=== PATIENT | female | born 1980 | race Caucasian/White ===

== ENCOUNTER 2016-10-20 16:53 | Emergency (ER) | payer OTHER ==
[~2016-10-20 16:53] MED LIST: CIPRO; PYRIDIUM
== END 2016-10-20 19:06 | disposition left against medical advice (07) ==
LOC: ER 16:54
DX: M54.5 Low back pain (principal)

== ENCOUNTER 2017-03-24 22:24 | Emergency (ER) | payer SELFPAY ==
[~2017-03-24] VITALS: Ht 167.6 cm; Wt 68.0 kg
[2017-03-25] MEDS ORDERED: SODIUM CHLORIDE 0.9% 1,000 ML IV ONE (01:44)
[2017-03-25] MEDS ORDERED: ONDANSETRON HCL 4MG/2ML VIAL IV ONE (01:45)
[2017-03-25] MEDS ORDERED: KETOROLAC 30MG/ML VIAL IV ONE (01:45)
[2017-03-25 02:13] LABS: BASOPHILS % 1.1 % (0.0-2.0); EOSINOPHILS % 3.6 % (0.0-5.0); HEMATOCRIT. 40.3 % (36.0-48.0); HEMOGLOBIN. 13.7 g/dL (12.0-16.0); MEAN CORPUSCULAR HEMOGLOBIN 31.6 pg (28.0-32.0); MEAN CORPUSCULAR VOLUME 92.8 fL (81.0-99.0); MEAN PLATELET VOLUME 8.8 fl (7.4-10.4); MONOCYTES % 10.4 % (2.0-8.0); NEUTROPHILS % 28.9 % (40.0-76.0); PLATELET 179 x1000/uL (130-400); RED BLOOD CELL COUNT 4.34 mill/uL (4.2-5.4); RED CELL DISTRIBUTION WIDTH 12.9 % (11.6-14.6)
[2017-03-25 02:19] LABS: CHLORIDE 106 mEq/L (98-107)
[2017-03-25 02:20] LABS: PROTHROMBIN TIME 10.3 sec (9.4-11.6)
[2017-03-25 02:27] LABS: CARBON DIOXIDE 31 mEq/L (21-32); ETHANOL BLOOD < 10 mg/dL
[2017-03-25 02:52] LABS: CLARITY URINE CLOUDY (CLEAR); COLOR URINE YELLOW (YELLOW); GLUCOSE URINE NEGATIVE (NEGATIVE); KETONES URINE TRACE (NEGATIVE); LEUKOCYTE ESTERASE URINE 3+ (NEGATIVE); NITRITE URINE POSITIVE (NEGATIVE); OCCULT BLOOD URINE 1+ (NEGATIVE); PROTEIN URINE NEGATIVE (NEGATIVE); SPECIFIC GRAVITY URINE 1.025 (1.005-1.030); UROBILINOGEN URINE 0.2 E.U./dL (0.2-1.0)
[2017-03-25] MEDS ORDERED: CEFTRIAXONE 1 G PREMIX 50 ML IV SCH (03:30)
[2017-03-25 04:07] LABS: *AMPHETAMINES SCREEN URINE PRESUMTIVE POSITIVE (NEGATIVE); *BARBITURATES SCREEN URINE NEGATIVE (NEGATIVE); *BENZODIAZEPINES SCREEN URINE NEGATIVE (NEGATIVE); *COCAINE SCREEN URINE NEGATIVE (NEGATIVE); CANNABINOID URINE SCREEN NEGATIVE (NEGATIVE); METHADONE URINE SCREEN NEGATIVE (NEGATIVE); OPIATES URINE SCREEN NEGATIVE (NEGATIVE); PHENCYCLIDINE URINE SCREEN NEGATIVE (NEGATIVE)
[2017-03-25 04:53] VITALS: BP 119/69
== END 2017-03-25 04:56 | disposition home or self-care (01) ==
LOC: ER 22:24
DX: R42 Dizziness and giddiness (principal); R10.30 Lower abdominal pain, unspecified; R11.2 Nausea with vomiting, unspecified
CPT/HCPCS: 36415; 80053; 80305; 81001; 85025; 85610; 96361; 96365; 96375; 99285; G0482; J0696; J1885; J2405; J7030; Z7610

== ENCOUNTER 2018-01-06 09:08 | Emergency (ER) | payer SELFPAY ==
[~2018-01-06] VITALS: Ht 167.6 cm; Wt 64.0 kg
[2018-01-06] MEDS ORDERED: SODIUM CHLORIDE 0.9% 1,000 ML IV ONE (09:27)
[2018-01-06] MEDS ORDERED: ONDANSETRON HCL 4MG/2ML VIAL IV STA (09:27)
[2018-01-06 09:48] LABS: CLARITY URINE CLEAR (CLEAR); COLOR URINE YELLOW (YELLOW); KETONES URINE NEGATIVE (NEGATIVE); LEUKOCYTE ESTERASE URINE 2+ (NEGATIVE); NITRITE URINE NEGATIVE (NEGATIVE); OCCULT BLOOD URINE NEGATIVE (NEGATIVE); PH URINE 5.5 (4.5-8.0); PROTEIN URINE NEGATIVE (NEGATIVE); SPECIFIC GRAVITY URINE 1.017 (1.005-1.030); UROBILINOGEN URINE 0.2 E.U./dL (0.2-1.0)
[2018-01-06 09:50] LABS: BASOPHILS % 0.7 % (0.0-2.0); EOSINOPHILS % 2.3 % (0.0-5.0); HEMOGLOBIN. 14.9 g/dL (12.0-16.0); LYMPHOCYTES % 41.2 % (20.0-50.0); MEAN CORPUSCULAR HEMOGLOBIN 31.6 pg (28.0-32.0); MEAN CORPUSCULAR VOLUME 91.1 fL (81.0-99.0); MEAN PLATELET VOLUME 8.8 fl (7.4-10.4); NEUTROPHILS % 47.8 % (40.0-76.0); PLATELET 193 x1000/uL (130-400); RED BLOOD CELL COUNT 4.72 mill/uL (4.2-5.4); RED CELL DISTRIBUTION WIDTH 12.8 % (11.6-14.6)
[2018-01-06 09:53] LABS: CHLORIDE 108 mEq/L (98-107)
[2018-01-06 09:56] LABS: PROTHROMBIN TIME 10.6 sec (9.4-11.6)
[2018-01-06 10:20] LABS: HCG SCREEN NEGATIVE
[2018-01-06 12:10] VITALS: BP 107/57
== END 2018-01-06 12:49 | disposition home or self-care (01) ==
LOC: ER 09:08
DX: R11.0 Nausea (principal); F17.200 Nicotine dependence, unspecified, uncomplicated
CPT/HCPCS: 36415; 80053; 81003; 83690; 84484; 84703; 85025; 85610; 85730; 93005; 96361; 96374; 99285; J2405; J7030; Z7610

== ENCOUNTER 2018-04-24 09:27 | Emergency (ER) | payer SELFPAY ==
[~2018-04-24] VITALS: Ht 172.7 cm; Wt 77.0 kg
[2018-04-24 09:38] VITALS: BP 113/58
== END 2018-04-24 12:37 | disposition left against medical advice (07) ==
LOC: ER 12:34
DX: Z53.21 Procedure and treatment not carried out due to patient leaving prior to being seen by health care provider (principal)

== ENCOUNTER 2018-08-28 09:03 | Emergency (ER) | payer MEDICAID ==
[~2018-08-28] VITALS: Ht 167.6 cm; Wt 66.0 kg
[2018-08-28 12:05] VITALS: BP 142/63
== END 2018-08-28 12:08 | disposition home or self-care (01) ==
LOC: ER 09:03
DX: N64.4 Mastodynia (principal); R03.0 Elevated blood-pressure reading, without diagnosis of hypertension
CPT/HCPCS: 81025; 99283

== ENCOUNTER 2018-09-02 09:36 | Emergency (ER) | payer MEDICAID ==
[~2018-09-02] VITALS: Ht 160 cm; Wt 73.0 kg
[2018-09-02 12:01] VITALS: BP 124/88
== END 2018-09-02 14:04 | disposition left against medical advice (07) ==
LOC: ER 11:40
DX: Z53.21 Procedure and treatment not carried out due to patient leaving prior to being seen by health care provider (principal)

== ENCOUNTER 2018-12-09 10:31 | Emergency (ER) | payer MEDICAID ==
[~2018-12-09] VITALS: Ht 167.6 cm; Wt 75.0 kg
[2018-12-09 12:59] VITALS: BP 111/78
== END 2018-12-09 13:01 | disposition home or self-care (01) ==
LOC: ER 10:31
DX: L03.114 Cellulitis of left upper limb (principal); L30.8 Other specified dermatitis; F17.210 Nicotine dependence, cigarettes, uncomplicated; Z71.6 Tobacco abuse counseling
CPT/HCPCS: 99283; 99406

== ENCOUNTER 2019-06-23 08:55 | Emergency (ER) | payer MEDICAID ==
[~2019-06-23] VITALS: Ht 162.6 cm; Wt 75.0 kg
[2019-06-23] MEDS ORDERED: SODIUM CHLORIDE 0.9% 1,000 ML IV ONE (10:10)
[2019-06-23] MEDS ORDERED: KETOROLAC 30MG/ML VIAL IV STA (10:10)
[2019-06-23 11:13] LABS: BASOPHILS % 0.8 % (0.0-2.0); EOSINOPHILS % 1.5 % (0.0-5.0); HEMOGLOBIN. 15.4 g/dL (12.0-16.0); LYMPHOCYTES % 38.3 % (20.0-50.0); MEAN CORPUSCULAR VOLUME 93.4 fL (81.0-99.0); MONOCYTES % 8.1 % (2.0-8.0); NEUTROPHILS % 51.3 % (40.0-76.0); PLATELET 191 x1000/uL (130-400); RED BLOOD CELL COUNT 4.82 mill/uL (4.2-5.4)
[2019-06-23 11:19] LABS: CHLORIDE 108 mEq/L (98-107)
[2019-06-23 11:27] LABS: HCG SCREEN NEGATIVE
[2019-06-23 11:32] LABS: *BARBITURATES SCREEN URINE NEGATIVE (NEGATIVE); CANNABINOID URINE SCREEN NEGATIVE (NEGATIVE); PHENCYCLIDINE URINE SCREEN NEGATIVE (NEGATIVE)
[2019-06-23 11:33] LABS: *AMPHETAMINES SCREEN URINE NEGATIVE (NEGATIVE); *BENZODIAZEPINES SCREEN URINE NEGATIVE (NEGATIVE); *COCAINE SCREEN URINE NEGATIVE (NEGATIVE); METHADONE URINE SCREEN NEGATIVE (NEGATIVE)
[2019-06-23 11:34] LABS: OPIATES URINE SCREEN NEGATIVE (NEGATIVE)
[2019-06-23 13:00] VITALS: BP 113/64
== END 2019-06-23 13:30 | disposition home or self-care (01) ==
LOC: ER 09:18
DX: R07.89 Other chest pain (principal); R51 Headache
CPT/HCPCS: 36415; 71045; 80053; 80305; 81025; 83880; 84484; 84703; 85025; 93005; 96374; 99284; J1885; J7030; Z7610

== ENCOUNTER 2020-06-17 08:02 | Emergency (ER) | payer MEDICAID ==
[~2020-06-17] VITALS: Ht 162.6 cm; Wt 69.0 kg
[2020-06-17] MEDS ORDERED: KETOROLAC 60MG/2ML VIAL IM ONE (08:45)
[2020-06-17] MEDS ORDERED: ONDANSETRON HCL 4MG TABLET PO ONE (08:45)
[2020-06-17] MEDS ORDERED: ACETAMINOPHEN 325MG TABLET PO ONE (08:45)
[2020-06-17 09:00] VITALS: BP 123/69
[2020-06-17 09:34] LABS: CLARITY URINE CLOUDY (CLEAR); COLOR URINE YELLOW (YELLOW); KETONES URINE NEGATIVE (NEGATIVE); LEUKOCYTE ESTERASE URINE 2+ (NEGATIVE); NITRITE URINE NEGATIVE (NEGATIVE); OCCULT BLOOD URINE TRACE (NEGATIVE); PROTEIN URINE NEGATIVE (NEGATIVE); SPECIFIC GRAVITY URINE 1.015 (1.005-1.030); UROBILINOGEN URINE 0.2 E.U./dL (0.2-1.0)
== END 2020-06-17 10:16 | disposition home or self-care (01) ==
LOC: ER 08:02
DX: N39.0 Urinary tract infection, site not specified (principal)
CPT/HCPCS: 81003; 81025; 87086; 93005; 96372; 99284; J1885; Q0162

== ENCOUNTER 2021-03-21 02:23 | Emergency (ER) | payer SELFPAY ==
[~2021-03-21] VITALS: Ht 167.6 cm; Wt 75.2 kg
[2021-03-21] MEDS ORDERED: KETOROLAC 30MG/ML VIAL IV STA (03:12)
[2021-03-21] MEDS ORDERED: SODIUM CHLORIDE 0.9% 1,000 ML IV ONE (03:15)
[2021-03-21 03:32] LABS: BASOPHILS % 0.6 % (0.0-2.0); EOSINOPHILS % 1.3 % (0.0-5.0); HEMATOCRIT. 40.7 % (36.0-48.0); HEMOGLOBIN. 13.9 g/dL (12.0-16.0); LYMPHOCYTES % 25.6 % (20.0-50.0); MEAN CORPUSCULAR HEMOGLOBIN 31.6 pg (28.0-32.0); MEAN CORPUSCULAR VOLUME 92.6 fL (81.0-99.0); MEAN PLATELET VOLUME 9.1 fl (7.4-10.4); MONOCYTES % 13.5 % (2.0-8.0); PLATELET 163 x1000/uL (130-400); RED BLOOD CELL COUNT 4.39 mill/uL (4.2-5.4); RED CELL DISTRIBUTION WIDTH 12.7 % (11.6-14.6)
[2021-03-21 03:37] LABS: CHLORIDE 111 mEq/L (98-107)
[2021-03-21 03:45] LABS: HCG SCREEN NEGATIVE
[2021-03-21 03:46] LABS: CLARITY URINE CLOUDY (CLEAR); COLOR URINE YELLOW (YELLOW); KETONES URINE NEGATIVE (NEGATIVE); LEUKOCYTE ESTERASE URINE 3+ (NEGATIVE); NITRITE URINE NEGATIVE (NEGATIVE); OCCULT BLOOD URINE NEGATIVE (NEGATIVE); PROTEIN URINE TRACE (NEGATIVE); SPECIFIC GRAVITY URINE 1.017 (1.005-1.030); UROBILINOGEN URINE 0.2 E.U./dL (0.2-1.0)
[2021-03-21] MEDS ORDERED: CEFTRIAXONE 1 G PREMIX 50 ML IV SCH (04:30)
[2021-03-21] MEDS ORDERED: CEPH500C2 MT (04:32)
[2021-03-21] MEDS ORDERED: IBUP-2028 MT (04:32)
[2021-03-21 05:53] VITALS: BP 137/56
== END 2021-03-21 05:58 | disposition home or self-care (01) ==
LOC: ER 02:45
DX: N12 Tubulo-interstitial nephritis, not specified as acute or chronic (principal)
CPT/HCPCS: 36415; 80053; 81003; 83690; 84703; 85025; 87086; 96361; 96365; 96375; 99284; J0696; J1885; J7030

== ENCOUNTER 2021-06-16 04:07 | Emergency (ER) | payer SELFPAY ==
[~2021-06-16] VITALS: Ht 172.7 cm; Wt 100.0 kg
[~2021-06-16 04:07] MED LIST changes: +CEPH500C2 MT; +IBUP-2028 MT
[2021-06-16] MEDS ORDERED: ONDANSETRON HCL 4MG/2ML INJ IV STA (04:28)
[2021-06-16] MEDS ORDERED: FAMOTIDINE 20MG/2ML VIAL IV STA (04:28)
[2021-06-16] MEDS ORDERED: MORPHINE SULFATE 4 MG/ML CPJ (NOT FOR IM USE) IV STA (04:28)
[2021-06-16] MEDS ORDERED: SODIUM CHLORIDE 0.9% 1,000 ML IV ONE (04:30)
[2021-06-16 04:57] LABS: BASOPHILS % 0.3 % (0.0-2.0); EOSINOPHILS % 1.1 % (0.0-5.0); HEMATOCRIT. 44.5 % (36.0-48.0); LYMPHOCYTES % 15.8 % (20.0-50.0); MEAN CORPUSCULAR VOLUME 92.2 fL (81.0-99.0); MEAN PLATELET VOLUME 9.4 fl (7.4-10.4); MONOCYTES % 5.4 % (2.0-8.0); NEUTROPHILS % 77.4 % (40.0-76.0); PLATELET 193 x1000/uL (130-400); RED BLOOD CELL COUNT 4.83 mill/uL (4.2-5.4); RED CELL DISTRIBUTION WIDTH 13.1 % (11.6-14.6)
[2021-06-16 05:09] LABS: CHLORIDE 114 mEq/L (98-107)
[2021-06-16 05:37] LABS: CLARITY URINE CLEAR (CLEAR); COLOR URINE YELLOW (YELLOW); KETONES URINE NEGATIVE (NEGATIVE); LEUKOCYTE ESTERASE URINE 1+ (NEGATIVE); NITRITE URINE NEGATIVE (NEGATIVE); OCCULT BLOOD URINE NEGATIVE (NEGATIVE); PH URINE 5.5 (4.5-8.0); PROTEIN URINE 1+ (NEGATIVE); SPECIFIC GRAVITY URINE 1.024 (1.005-1.030); UROBILINOGEN URINE 0.2 E.U./dL (0.2-1.0)
[2021-06-16 05:44] LABS: HCG SCREEN NEGATIVE
[2021-06-16] MEDS ORDERED: SULF1TAB48 MT (06:05)
[2021-06-16] MEDS ORDERED: ONDA4TAB5 MT (06:05)
[2021-06-16] MEDS ORDERED: IBUP-2029 MT (06:05)
[2021-06-16 06:15] VITALS: BP 102/50
== END 2021-06-16 06:23 | disposition home or self-care (01) ==
LOC: ER 04:14
DX: N39.0 Urinary tract infection, site not specified (principal)
CPT/HCPCS: 36415; 71045; 74176; 76705; 80053; 81003; 83605; 83690; 84703; 85025; 96361; 96374; 96375; 99285; J2270; J2405; J3490; J7030

== ENCOUNTER 2022-01-06 15:14 | Emergency (ER) | payer SELFPAY ==
[~2022-01-06] VITALS: Ht 167.6 cm; Wt 73.0 kg
[~2022-01-06 15:14] MED LIST changes: +IBUP-2029 MT; +ONDA4TAB5 MT; +SULF1TAB48 MT
[2022-01-06 15:19] VITALS: BP 122/60
[2022-01-06] MEDS ORDERED: ONDANSETRON HCL 4MG/2ML INJ IV STA (15:35)
[2022-01-06] MEDS ORDERED: PANTOPRAZOLE SODIUM 40 MG/VIAL IV STA (15:35)
[2022-01-06] MEDS ORDERED: MAGNESIUM/ALUMINUM HYDROXIDE/SIMETHICONE 30ML UDC PO STA (15:35)
[2022-01-06] MEDS ORDERED: SODIUM CHLORIDE 0.9% 1,000 ML IV ONE (15:45)
[2022-01-06 18:41] LABS: BASOPHILS % 0.1 % (0.0-2.0); EOSINOPHILS % 0.4 % (0.0-5.0); HEMOGLOBIN. 14.9 g/dL (12.0-16.0); LYMPHOCYTES % 15.2 % (20.0-50.0); MEAN CORPUSCULAR HEMOGLOBIN 31.9 pg (28.0-32.0); MEAN PLATELET VOLUME 9.5 fl (7.4-10.4); MONOCYTES % 6.1 % (2.0-8.0); NEUTROPHILS % 78.2 % (40.0-76.0); PLATELET 195 x1000/uL (130-400); RED BLOOD CELL COUNT 4.68 mill/uL (4.2-5.4); RED CELL DISTRIBUTION WIDTH 13.3 % (11.6-14.6)
[2022-01-06 18:46] LABS: HCG SCREEN NEGATIVE; PROTHROMBIN TIME 10.7 sec (9.6-11.0)
[2022-01-06 18:50] LABS: CHLORIDE 104 mEq/L (98-107)
== END 2022-01-06 22:03 | disposition left against medical advice (07) ==
LOC: ER 15:14
DX: R10.9 Unspecified abdominal pain (principal); R11.10 Vomiting, unspecified; R19.7 Diarrhea, unspecified
CPT/HCPCS: 36415; 76700; 80053; 83690; 84703; 85025; 85610; 99284; J7030

== ENCOUNTER 2022-02-01 18:00 | Emergency (ER) | payer SELFPAY ==
[~2022-02-01] VITALS: Ht 170.2 cm; Wt 74.7 kg
[2022-02-01 18:18] VITALS: BP 113/72
[2022-02-01] MEDS ORDERED: HYDROCODONE/ACETAMINOPHEN 10/325MG TABLET PO ONE (20:45)
[2022-02-01] MEDS ORDERED: NEOMYCIN-POLYMYXIN B-HYDROCORTISONE 1% OTIC SOLN 10ML RIGHT EAR ONE (20:45)
[2022-02-01] MEDS ORDERED: AMOXICILLIN 500 MG CAPSULE PO ONE (20:45)
== END 2022-02-02 00:47 | disposition home or self-care (01) ==
LOC: ER 18:00
DX: H60.91 Unspecified otitis externa, right ear (principal); Z79.899 Other long term (current) drug therapy
CPT/HCPCS: 99281

== ENCOUNTER 2022-05-26 10:51 | Emergency (ER) | payer SELFPAY ==
[~2022-05-26] VITALS: Ht 167.6 cm; Wt 75.0 kg
[2022-05-26 10:54] VITALS: BP 111/61
[2022-05-26] MEDS ORDERED: HYDR453.3 TP (12:58)
[2022-05-26] MEDS ORDERED: DOCU50LI25 MT (13:00)
== END 2022-05-26 13:13 | disposition home or self-care (01) ==
LOC: ER 11:08
DX: K64.9 Unspecified hemorrhoids (principal); L02.31 Cutaneous abscess of buttock
CPT/HCPCS: 99282

== ENCOUNTER 2022-12-28 00:26 | Emergency (ER) | payer MEDICAID ==
[~2022-12-28] VITALS: Ht 172.7 cm; Wt 69.0 kg
[~2022-12-28 00:26] MED LIST changes: +DOCU50LI25 MT; +HYDR453.3 TP
[2022-12-28 00:33] VITALS: BP 112/64; PULSE 68; RESP 16; TEMP 97.5; O2SAT 95
[2022-12-28] MEDS ORDERED: VISCOUS LIDOCAINE 2% 15 ML UDC PO STA (00:53)
[2022-12-28] MEDS ORDERED: ONDANSETRON 4MG ODT PO STA (00:53)
[2022-12-28] MEDS ORDERED: MAGNESIUM/ALUMINUM HYDROXIDE/SIMETHICONE 30ML UDC PO STA (00:53)
== END 2022-12-28 04:00 | disposition left against medical advice (07) ==
LOC: ER 00:26
DX: R10.84 Generalized abdominal pain (principal); Z98.890 Other specified postprocedural states
CPT/HCPCS: 99283

== ENCOUNTER 2023-10-18 17:12 | Emergency (ER) | payer MEDICAID ==
[~2023-10-18] VITALS: Ht 167.6 cm; Wt 70.0 kg
[2023-10-18 17:14] VITALS: PULSE 81
[2023-10-18 17:18] VITALS: BP 107/61; RESP 18; TEMP 98.5; O2SAT 98
[2023-10-18 18:21] LABS: BASOPHILS % 0.6 % (0.0-2.0); EOSINOPHILS % 1.5 % (0.0-5.0); HEMATOCRIT. 39.2 % (36.0-48.0); HEMOGLOBIN. 13.7 g/dL (12.0-16.0); LYMPHOCYTES % 46.1 % (20.0-50.0); MEAN CORPUSCULAR HEMOGLOBIN 33.6 pg (28.0-32.0); MEAN CORPUSCULAR HGB CONC 34.9 g/dL (31.0-37.0); MEAN CORPUSCULAR VOLUME 96.2 fL (81.0-99.0); MEAN PLATELET VOLUME 9.2 fl (7.4-10.4); MONOCYTES % 7.9 % (2.0-8.0); NEUTROPHILS % 43.9 % (40.0-76.0); PLATELET 194 x1000/uL (130-400); RED BLOOD CELL COUNT 4.08 mill/uL (4.2-5.4)
[2023-10-18 18:29] LABS: CHLORIDE 108 mEq/L (98-107); POTASSIUM 4.1 mEq/L (3.5-5.1); SODIUM 140 mEq/L (136-145)
[2023-10-18 18:30] LABS: CARBON DIOXIDE 25 mEq/L (21-32)
[2023-10-18 18:31] LABS: CALCIUM 8.5 mg/dL (8.7-10.4)
[2023-10-18 18:35] LABS: CREATININE 0.9 mg/dL (0.6-1.0); GLUCOSE 102 mg/dL (70-105); TROPONIN I HIGH SENSITIVITY 7 ng/L (3.0-34)
[2023-10-18 18:36] LABS: HCG SCREEN NEGATIVE; UREA NITROGEN BLOOD 10 mg/dL (9-23)
[2023-10-18 18:37] LABS: ALANINE AMINOTRANSFERASE 10 IU/L (10-49); ALBUMIN 3.9 g/dL (3.2-4.8); ASPARTATE AMINOTRANSFERASE 16 IU/L (<34)
[2023-10-18 18:38] LABS: BILIRUBIN TOTAL 0.3 mg/dL (0.1-1.0); PROTEIN TOTAL 7.2 g/dL (6.0-8.3)
== END 2023-10-18 19:03 | disposition home or self-care (01) ==
LOC: ER 17:12
DX: R07.89 Other chest pain (principal); M25.512 Pain in left shoulder; Z79.899 Other long term (current) drug therapy
CPT/HCPCS: 36415; 71045; 80053; 84484; 84703; 85025; 85379; 93005; 99285

== ENCOUNTER 2024-06-20 02:21 | Emergency (ER) | payer MEDICAID ==
[~2024-06-20] VITALS: Ht 165.1 cm; Wt 80.0 kg
[2024-06-20 02:27] VITALS: TEMP 98.3; O2SAT 98
[2024-06-20] MEDS: MORPHINE SULFATE 4 MG/ML INJ (FOR IV/IM USE) IM ONE (03:08)
[2024-06-20] MEDS: ONDANSETRON 4MG ODT PO ONE (03:09)
[2024-06-20 05:29] VITALS: BP 128/80; PULSE 99; RESP 16
[2024-06-20] MEDS: MORPHINE SULFATE 4 MG/ML INJ (FOR IV/IM USE) IV ONE (05:29)
[2024-06-20] MEDS ORDERED: HYDR-4001 MT (06:27)
[2024-06-20] MEDS ORDERED: NAPR-1074 MT (06:27)
== END 2024-06-20 06:54 | disposition home or self-care (01) ==
LOC: ER 02:28
DX: S82.141A Displaced bicondylar fracture of right tibia, initial encounter for closed fracture (principal); Z79.899 Other long term (current) drug therapy; Z98.890 Other specified postprocedural states; Z00.00 Encounter for general adult medical examination without abnormal findings; W01.0XXA Fall on same level from slipping, tripping and stumbling without subsequent striking against object, initial encounter; Y93.89 Activity, other specified; Y92.89 Other specified places as the place of occurrence of the external cause; Y99.8 Other external cause status
CPT/HCPCS: 73562; 73590; 96372; 96374; 99284; Q0162; J2270; Z7610; L1830